=== PATIENT | male | born 1990 | race Caucasian/White ===

== ENCOUNTER 2019-05-17 19:49 | Emergency (ER) | payer BC ==
--- NOTE | 2019-05-17 21:05 | ED ---
Upper Extremity Pain - HPI Summary HPI Summary: Patient complains of left hand pain status post fall while playing softball. Denies any other pain injury or symptoms. - History of Current Complaint Chief Complaint: EDExtremityUpper Stated Complaint: POSS BROKEN HAND PER PT Time Seen by Provider: 05/17/19 20:37 Hx Obtained From: Patient Mechanism Of Injury: Fall From A Standing Position Onset/Duration: Started Hours Ago Timing: Constant Severity Initially: Moderate Severity Currently: Moderate Pain Location: Hand Character: Throbbing Aggravating Factor(s): Movement Alleviating Factor(s): Rest, Ice Associated Signs & Symptoms: Positive: Negative - Allergies/Home Medications Allergies/Adverse Reactions: Allergies Allergy/AdvReac Type Severity Reaction Status Date / Time cefaclor [From [facility]] Allergy Unknown Verified 05/17/19 20:01 Reaction Details PMH/Surg Hx/FS Hx/Imm Hx Endocrine/Hematology History: Denies: Hx Anticoagulant Therapy Cardiovascular History: Denies: Hx Pacemaker/ICD History: Denies: Hx Dialysis Sensory History: Denies: Hx Eye Prosthesis Opthamlomology History: Denies: Hx Legally Blind EENT History: Denies: Hx Deafness Neurological History: Denies: Hx Dementia Psychiatric History: Denies: Hx Autism Infectious Disease History: No Infectious Disease History: Denies: Traveled Outside the [place] in Last 30 Days - Family History Known Family History: Positive: Non-Contributory - Social History Alcohol Use: None Hx Substance Use: No Hx Tobacco Use: No Review of Systems Constitutional: Negative Eyes: Negative ENT: Negative Cardiovascular: Negative Respiratory: Negative Gastrointestinal: Negative Genitourinary: Negative Musculoskeletal: Other Skin: Negative Neurological: Negative Psychological: Normal All Other Systems Reviewed And Are Negative: Yes Physical Exam - Summary Physical Exam Summary: Mild swelling to lateral left hand dorsal surface. PMS intact distally. Triage Information Reviewed: Yes Vital Signs On Initial Exam: Initial Vitals Temp Pulse Resp BP Pulse Ox 98.5 F 80 16 140/78 97 05/17/19 19:55 05/17/19 19:55 05/17/19 19:55 05/17/19 19:55 05/17/19 19:55 Vital Signs Reviewed: Yes Appearance: Positive: Well-Appearing Skin: Positive: Warm Head/Face: Positive: Normal Head/Face Inspection Eyes: Positive: Normal Neck: Positive: Supple Respiratory/Lung Sounds: Positive: Clear to Auscultation Cardiovascular: Positive: Normal Abdomen Description: Positive: Nontender Neurological: Positive: Normal Psychiatric: Positive: Normal AVPU Assessment: Alert - Carlos Coma Scale Best Eye Response: 4 - Spontaneous Best Motor Response: 6 - Obeys Commands Best Verbal Response: 5 - Oriented Coma Scale Total: 15 Procedures - Splinting 1 Location: left hand Hand-Made Type: orthoglass Splint: ulnar Pre-Proc Neuro Vasc Exam: normal Post-Proc Neuro Vasc Exam: normal Diagnostics - Vital Signs Vital Signs Temp Pulse Resp BP Pulse Ox 05/17/19 19:55 98.5 F 80 16 140/78 97 - Laboratory Lab Statement: Any lab studies that have been ordered have been reviewed, and results considered in the medical decision making process. Course/Dx - Course Course Of Treatment: Patient complains of left hand pain status post fall while playing softball. Denies any other pain injury or symptoms. Vital signs within normal limits. X-ray positive for fifth medical carpal fracture. Ulnar gutter splint placed. Follow-up with ortho - Diagnoses Provider Diagnoses: Fracture of fifth metacarpal bone Discharge - Sign-Out/Discharge Documenting (check all that apply): Patient Departure Patient Received Moderate/Deep Sedation with Procedure: No - Discharge Plan Condition: Stable Disposition: HOME Patient Education Materials: Hand Fracture (ED) Referrals: Jaime Car MD [Primary Care Provider] - Manolo Moses MD [Medical Doctor] - Additional Instructions: Follow-up with Ortho Dr. Moses for further evaluation. Ice rest and ibuprofen for pain and swelling. Return to the ED for any new or worsening symptoms. - Billing Disposition and Condition Condition: STABLE Disposition: Home
[2019-05-17 21:54] VITALS: BP 140/77
--- NOTE | 2019-05-18 08:10 | PN ---
Progress Note - Progress Note Date of Service: 05/17/19 Note: Final hand xray read per radiology: IMPRESSION: NONDISPLACED FRACTURE OF THE BASE OF THE FIFTH METACARPAL. FINDINGS REVIEWED WITH ARMINDA ESPAÑA AT APPROXIMATELY 8:00 PM ON MAY 18, 2019. R3 Pt. treated and dx with a hand fx in ED last night. He was referred to Dr. Moses. No change in treatment needed.
== END 2019-05-17 21:30 | disposition home or self-care (01) ==
LOC: ED 19:49
DX: S62.347A Nondisplaced fracture of base of fifth metacarpal bone, left hand, initial encounter for closed fracture (principal); W19.XXXA Unspecified fall, initial encounter; Y93.64 Activity, baseball
CPT/HCPCS: 99281